=== PATIENT | male | born 1990 | race Caucasian/White ===

== ENCOUNTER 2016-06-09 05:41 | Emergency (ER) | payer OTHER ==
[~2016-06-09] VITALS: Ht 190.5 cm; Wt 110.0 kg
[2016-06-09 05:53] VITALS: BP 124/103; PULSE 82; RESP 16; TEMP 98.5; O2SAT 99
--- NOTE | 2016-06-09 06:05 | PD ---
HPI Chief Complaint: Medical Clearance Time Seen by Provider: 05:57 Travel History International Travel<30 days: No Contact w/Intl Traveler<30days: No Traveled to known affect area: No History of Present Illness HPI Patient comes in under police escort for medical clearance for alf for cut/ abrasion to his left hand. Patient states he does not want be seen, does not want be here, and is refusing all medical care. Reports tetanus shot is up-to- date. PFS Past Medical History Medical History: Denies Significant Hx Social History Alcohol Use: Yes Tobacco Use: Yes Substance Use: No Allergies-Medications (Allergen,Severity, Reaction): Coded Allergies: No Known Allergies (Unverified , 06/09/16) Reported Meds & Prescriptions Reported Meds & Active Scripts Active No Active Prescriptions or Reported Medications Review of Systems ROS Limitations: Uncooperative Except as stated in HPI: all other systems reviewed are Neg Physical Exam Exam Limitations: Uncooperative Narrative GENERAL: Well-developed, well nourished, in no acute distress, and non-ill appearing. SKIN: Warm and dry. HEAD: Atraumatic. Normocephalic. EYES: Pupils equal and round. EOMI. No scleral icterus. No injection or drainage. ENT: No nasal bleeding or discharge. Mucous membranes pink and moist. NECK: Trachea midline. Supple. No nuclear rigidity. RESPIRATORY: No accessory muscle use. No respiratory distress. MUSCULOSKELETAL: No obvious deformities. No clubbing. No cyanosis. No edema. Full range of motion. NEUROLOGICAL: Awake and alert. No obvious cranial nerve deficits. Motor grossly within normal limits. Normal speech. PSYCHIATRIC: Appropriate mood and affect; insight and judgment normal. Data Data Last Documented VS Vital Signs Date Time Temp Pulse Resp B/P Pulse Ox O2 Delivery O2 Flow Rate FiO2 06/09/16 05:55 14 06/09/16 05:53 98.5 82 124/103 99 MDM Medical Decision Making Medical Screen Exam Complete: Yes Emergency Medical Condition: Yes Differential Diagnosis Laceration, abrasion, medical clearance, other Narrative Course Patient refuses all medical care. Will not allow me to assess his wound, therefore patient will be discharged back to alf. Patient in no obvious distress upon re-evaluation. Instructed patient to return to ED immediately, if symptoms return/worsen. Further instructions and recommendations were detailed in discharge paperwork. Pt ambulated without difficulty out of ED at discharge in police custody. Diagnosis Primary Impression: Visit for wound check Patient Instructions: Acute Wound Care (ED), General Instructions Additional Instructions: Follow-up with your primary care physician this week for evaluation. Keep wound dry and clean as possible using soap and water. Use Neosporin to promote healing. Return to the emergency department if symptoms get worse. Scripts No Active Prescriptions or Reported Meds Disposition: 01 DISCHARGE HOME (in police custody) Condition: Stable Anmol Cary Jun 09, 2016 06:05
== END 2016-06-09 06:09 | disposition home or self-care (01) ==
LOC: NEPB 05:41
DX: S61.412A Laceration without foreign body of left hand, initial encounter (principal); Z72.0 Tobacco use; Y35.813A Legal intervention involving manhandling, suspect injured, initial encounter
CPT/HCPCS: 99283